=== PATIENT | female | born 1955 ===

== ENCOUNTER → 2020-09-22 13:52 | Outpatient (CLI) | payer OTHER, SELFPAY ==
--- NOTE | ~2020-09-22 | MM_ITS ---
EXAMINATION: MM screening ana BI w dilcia HISTORY: Screening mammogram TECHNIQUE: Craniocaudal and mediolateral oblique 3-D tomosynthesis images were obtained and synthetic 2-D images were generated. CAD analysis was submitted and interpreted. COMPARISON: 03/21/2017 BREAST PARENCHYMAL COMPOSITION: There are scattered areas of fibroglandular density. FINDINGS: There is no evidence of suspicious mass, calcification, or architectural distortion to sugg est malignancy in either breast. There has been no suspicious interval change. IMPRESSION: 1. No mammographic evidence of malignancy. 2. Recommend routine screening mammography in one year. BI-RADS Category 1: Negative Reviewed, dictated and finalized at location A.
== END ==
PROVIDERS: PCP Family Medicine; Visit Provider Family Medicine
DX: Z12.31 Encounter for screening mammogram for malignant neoplasm of breast (principal)
CPT/HCPCS: 77063; 77067

== ENCOUNTER 2021-03-05 09:20 | Emergency (ER) | payer OTHER, SELFPAY ==
[2021-03-05 09:36] VITALS: BP 181/65; PULSE 103; RESP 18; TEMP 36.5; O2SAT 100
--- NOTE | 2021-03-05 09:53 | ED.FEMALEGU ---
HPI - Female Genitourinary General Chief complaint: Urogenital-Female Stated complaint: UTI Time Seen by Provider: 03/05/21 09:53 Source: patient and RN notes reviewed Mode of arrival: ambulatory Limitations: no limitations History of Present Illness HPI Narrative: 65-year-old female presents to the [facility] with complaints of I think I have a UTI. Patient complains of bladder aches and urethral irritation. Patient reports symptoms started approximately 3 weeks ago and has tried [id number] treatments such as cranberry pills, Tylenol. States on Friday night it got worse. Has a history of hypertension and states she has really bad whitecoat syndrome. Related Data Home Medications Medication Instructions Recorded Confirmed dorzolamide 22.3 mg-timolol 6.8 1 drop EACH EYE BID 04/05/20 03/05/21 mg/mL eye drops Allergies Allergy/AdvReac Type Severity Reaction Status Date / Time chlorpheniramine Allergy Unknown Unknown Verified 03/05/21 10:03 pseudoephedrine Allergy Unknown Unknown Verified 03/05/21 10:03 simvastatin Allergy Unknown Unknown Verified 03/05/21 10:03 Thtzfpu-Zwn-Gun Reductase Allergy Unknown Unknown Verified 03/05/21 10:03 Inhibitor terconazole Allergy Unknown Unknown Verified 03/05/21 10:03 tetracycline Allergy Unknown Unknown Verified 03/05/21 10:03 BECLOMETHASONE DIPROPIONATE Allergy Mild Unknown Uncoded 03/05/21 10:03 DECONOMINE Allergy Mild Unknown Uncoded 03/05/21 10:03 Review of Systems Review of Systems: All systems reviewed & are unremarkable except as noted in HPI and below Constitutional: Constitutional: Reports no additional constitutional complaints, Denies chills and Denies fatigue Eyes: Eyes: Reports no additional eye complaints ENT: Reports system reviewed and no additional complaints, except as documented Cardiovascular: Cardiovascular: Reports no additional cardiovascular complaints and Denies chest pain Respiratory: Respiratory: Reports no additional respiratory complaints, Denies cough and Denies dyspnea Gastrointestinal: Gastrointestinal: Reports no additional gastrointestinal complaints, Denies abdominal pain, Denies diarrhea, Denies nausea and Denies vomiting Genitourinary: Genitourinary: Reports as per HPI, Reports nocturia, Reports dysuria and Denies flank pain Musculoskeletal: Musculoskeletal: Reports no additional musculoskeletal complaints Integumentary/Breasts: Skin/Breast: Reports system reviewed and no additional complaints, except as docu Neurologic: Reports system reviewed and no additional complaints, except as documented Psychiatric: Psychiatric: Reports no additional psychiatric complaints Allergic/Immunologic: Allergic/Immunologic: Reports no additional allergic/immunologic complaints [facility] Past Medical History Medical History Hypertension Family History Family History Father Hypertension Family history of diabetes mellitus in first degree relative Family history of coronary artery disease Social History Social History Smoking packs per day: 0.5 Smoking cigarettes per day: 10.0 Years smoked: 10 Smoking pack-years: 5.00 Smoking status: Former smoker Tobacco type: cigarettes Second hand tobacco smoke exposure: No Smoking end date: 06/30/86 Alcohol intake: never Substance use: never Substance use type: does not use Gender identity (if verbalized by the patient): Female Comments At the time of my signature, I reviewed and agree with the nursing past medical, surgical, social, and family history. There is no relevant family history pertinent to the patient complaint. Exam Const: General: healthy appearing, no acute distress and alert Nutritional Appearance: well nourished and obese Orientation/consciousness: patient oriented x3 Limitations: no limitations HENMT:
== END 2021-03-05 10:08 | disposition home or self-care (01) ==
PROVIDERS: Emergency Provider Nurse Practitioner; PCP Family Medicine
DX: N30.01 Acute cystitis with hematuria (principal); I10 Essential (primary) hypertension; Z87.891 Personal history of nicotine dependence
CPT/HCPCS: 81003; 87077; 87086; 87088; 87186; 99213; G0463

== ENCOUNTER 2021-11-05 15:08 | Outpatient (CLI) | payer OTHER, SELFPAY ==
--- NOTE | ~2021-11-05 | US_ITS ---
EXAMINATION: US pelvic complete w TV DATE: 11/05/2021 16:02 INDICATION: Abnormal uterine and vaginal bleeding TECHNIQUE: Multiple transabdominal and endovaginal sonographic images of the pelvis were obtained. COMPARISON: 05/16/2010 FINDINGS: The uterus measures 8.1 x 4.1 x 5.7 cm. The endometrial complex measures 15 mm. There is a 2.9 x 2.3 x 2.8 cm mass of the anterior uterine body which has the appearance of an intramural fibroi d. The ovaries are not visualized however no adnexal abnormality is seen. There is no free fluid in t he pelvis. IMPRESSION: 1. Endometrial thickening which may be due to hyperplasia, polyp, or malignancy. Endometrial sampling is recommended. Reviewed, dictated and finalized at location A. IMPRESSION: 1. Endometrial thickening which may be due to hyperplasia, polyp, or malignancy . Endometrial sampling is recommended.
== END 2021-11-05 15:09 | disposition home or self-care (01) ==
LOC: ANHIMG 15:11
PROVIDERS: PCP Family Medicine; Visit Provider Family Medicine
DX: N93.9 Abnormal uterine and vaginal bleeding, unspecified (principal); R93.89 Abnormal findings on diagnostic imaging of other specified body structures
CPT/HCPCS: 76830; 76856

== ENCOUNTER 2022-03-08 13:02 | Outpatient (CLI) | payer OTHER, SELFPAY ==
--- NOTE | ~2022-03-08 | US_ITS ---
EXAMINATION: US thyroid DATE: 03/08/2022 13:35 INDICATION: Nontoxic single thyroid nodule TECHNIQUE: Multiple ultrasound images of the thyroid were obtained. COMPARISON: None. FINDINGS: The right thyroid lobe measures 3.7 x 1.3 x 1.3 cm. The left thyroid lobe measures 4.2 x 2.1 x 1.5 c m. 2.0 cm wider than tall predominately solid hypoechoic left thyroid nodule with smooth and ill-def ined margins and with small coarse echogenic calcified calcifications as well as a small central cyst ic region within the nodule (TI-RADS 4, moderately suspicious , FNA if >=1.5 cm, annual followup is > =1 cm). There is normal echotexture, echogenicity and vascular flow throughout the surrounding thyroi d gland. IMPRESSION: 1. 2.0 cm TI RADS 4 left thyroid nodule for which ultrasound guided biopsy would be recommended. Reviewed, dictated and finalized at location A. IMPRESSION: 1. 2.0 cm TI RADS 4 left thyroid nodule for which ultrasound guided biopsy woul d be recommended.
== END 2022-03-08 13:03 | disposition home or self-care (01) ==
LOC: ANHIMG 13:05
PROVIDERS: PCP Family Medicine; Visit Provider Family Medicine
DX: E04.1 Nontoxic single thyroid nodule (principal)
CPT/HCPCS: 76536

== ENCOUNTER 2025-02-23 11:31 | Outpatient (CLI) | payer MEDICARE, OTHER, SELFPAY ==
--- NOTE | ~2025-02-23 | MM_ITS ---
EXAMINATION: MM screening ana BI w dilcia HISTORY: Screening TECHNIQUE: Craniocaudal and mediolateral oblique 3-D tomosynthesis images were obtained and synthetic 2-D images were generated. CAD analysis was submitted and interpreted. COMPARISON: Comparison to multiple prior studies sequentially, with oldest reviewed study dated 03/21/2017. BREAST PARENCHYMAL COMPOSITION: There are scattered areas of fibroglandular density. FINDINGS: There is no evidence of suspicious mass, calcification, or architectural distortion to suggest malignancy in either breast. IMPRESSION: 1. No mammographic evidence of malignancy. 2. Recommend routine screening mammography in one year. BI-RADS Category 1: Negative Reviewed, dictated and finalized at location B.
== END 2025-02-23 11:32 | disposition home or self-care (01) ==
LOC: MICIMG 11:34
PROVIDERS: PCP Family Medicine; Visit Provider Family Medicine
DX: Z12.31 Encounter for screening mammogram for malignant neoplasm of breast (principal)
CPT/HCPCS: 77063; 77067